=== PATIENT | female | born 1945 | race Caucasian/White ===

== ENCOUNTER 2020-11-24 15:51 | Observation (INO) | payer OTHER ==
[~2020-11-24] VITALS: Ht 160 cm; Wt 83.9 kg
[2020-11-24 18:48] LABS: HEMOGLOBIN 10.5 gm/dl (12.3-15.3); RED BLOOD COUNT 3.36 M/UL (4.00-5.10); WHITE BLOOD COUNT 8.9 K/UL (4.5-11.0)
[2020-11-24] MEDS ORDERED: BACLOFEN10 MG PO (21:53)
[2020-11-24] MEDS ORDERED: MEDROL TAB 4 MG4 MG PO (21:53)
[2020-11-24] MEDS ORDERED: LIPITOR TAB 1010 MG PO (21:54)
[2020-11-24] MEDS ORDERED: OMEPRAZOLE40 MG PO (21:54)
[2020-11-24] MEDS ORDERED: LEVOTHYROXINE25 MC1 PO (21:55)
[2020-11-24] MEDS ORDERED: ZESTRIL 40 MG T40 MG PO (21:55)
[2020-11-24] MEDS ORDERED: ULTRAM50 MG PO (21:57)
[2020-11-24] MEDS ORDERED: VITAMIN D21250 MCG PO (21:57)
[2020-11-24] MEDS ORDERED: HYDROCHLOROTH12.5 M1 PO (21:58)
[2020-11-24] MEDS ORDERED: ALL DAY ALLERGY10 M2 PO (21:58)
[2020-11-25] MEDS ORDERED: ECOTRIN81 MG PO (10:54)
== END 2020-11-25 15:19 | disposition home or self-care (01) ==
LOC: ER1 15:51 → CDU 21:50 → M/S 21:50
PROVIDERS: Family Medicine; ADMIT Internal Medicine
DX: R07.89 Other chest pain (principal); N17.9 Acute kidney failure, unspecified; I11.9 Hypertensive heart disease without heart failure; E11.9 Type 2 diabetes mellitus without complications; E78.5 Hyperlipidemia, unspecified; J45.909 Unspecified asthma, uncomplicated; G89.29 Other chronic pain; M54.16 Radiculopathy, lumbar region; R79.1 Abnormal coagulation profile; D64.9 Anemia, unspecified; M19.90 Unspecified osteoarthritis, unspecified site; E66.9 Obesity, unspecified; Z68.32 Body mass index [BMI] 32.0-32.9, adult; Z20.822 Contact with and (suspected) exposure to COVID-19; Z90.49 Acquired absence of other specified parts of digestive tract; Z91.041 Radiographic dye allergy status; Z87.891 Personal history of nicotine dependence; Z79.1 Long term (current) use of non-steroidal anti-inflammatories (NSAID); Z79.899 Other long term (current) drug therapy
CPT/HCPCS: ECHO; 0240U; 36415; 71045; 80053; 80061; 81001; 82550; 82553; 82570; 82607; 82746; 83036; 83540; 83550; 83735; 83874; 83880; 83935; 84156; 84439; 84443; 84484; 84550; 85025; 85379; 93005; 93306; 99285; G0378